=== PATIENT | female | born 1995 | race Caucasian/White ===

== ENCOUNTER 2017-04-19 17:37 | Emergency (ER) | payer MEDICAID ==
--- NOTE | 2017-04-19 19:56 | EDM.PDOC ---
ED HPI GENERAL MEDICAL PROBLEM - General Chief Complaint: Skin Complaint Stated Complaint: RED BUMPS ON BODY Time Seen by Provider: 04/19/17 19:50 Source of Information: Reports: Patient History Limitations: Reports: No Limitations - History of Present Illness INITIAL COMMENTS - FREE TEXT/NARRATIVE: This lady complains of some skin eruptions that have been going on for about one week and seem to be getting worse. They seem to be spreading. She has warm pruritic raised nodules to the ulnar surface of the distal forearm she has it on one finger there is a nodule on both sides of the low back. She has 1 platelets on the left protestant and over the Achilles tendon of one of her ankles there is an area that she has scratched a little bit to. She denies any recent kind of illness. She thinks it's hives because is so itchy. She hasn't been trying any kind of medications for this. No chance of . And she denies any kind of medications. - Related Data Allergies Allergy/AdvReac Type Severity Reaction Status Date / Time No Known Allergies Allergy Verified 04/19/17 18:01 Home Meds: Home Meds NK [No Known Home Meds] 04/19/17 [History] Past Medical History - Past Health History Medical/Surgical History: Denies Medical/Surgical History Social & Family History - Tobacco Use Smoking Status *Q: Current Every Day Smoker Years of Tobacco use: 3 Packs/Tins Daily: 0.1 ED ROS GENERAL - Review of Systems Review Of Systems: ROS reveals no pertinent complaints other than HPI. ED EXAM, SKIN/RASH Exam: See Below Exam Limited By: No Limitations General Appearance: Alert, WD/WN, No Apparent Distress Eye Exam: Bilateral Eye: Normal Inspection Ears: Normal External Exam Nose: Normal Inspection Throat/Mouth: Normal Oropharynx Head: Atraumatic Neck: Normal Inspection Respiratory/Chest: Lungs Clear Cardiovascular: Regular Rate, Rhythm GI/Abdominal: Non-Tender Back Exam: Normal Inspection Extremities: Normal Inspection Neurological: Alert Psychiatric: Normal Affect Skin: Other (There are warm red blanching nodules generally about 4 cm across they're located on both sides the back just inferior to the iliac crest. They are pruritic not overtly tender however and they are bright red and sussy. She has similar but little bit smaller lesions about 3 cm on both distal forearms. There is an indistinct lesion like this to the left protestant. There is an area on one of her Achilles tendon since of less distinct but she's been scratching attics as there are some little excoriations. I don't see any on the chest or upper back. The rest of the skin looks normal I don't see any kind of maculopapular rash or anything of that nature. These lesions have kind of an indistinct target appearance) Course - Vital Signs Last Recorded V/S: Last Vital Signs Temp 36.9 C 04/19/17 18:15 Pulse 74 04/19/17 18:15 Resp 16 04/19/17 18:15 BP 137/83 04/19/17 18:15 Pulse Ox 98 04/19/17 18:15 - Re-Assessments/Exams Free Text/Narrative Re-Assessment/Exam: 04/19/17 19:56 I explained to the girl that this looks a lot like erythema nodosum and we discussed the etiology of that. Urticaria still a possibility however Departure - Departure Time of Disposition: 19:56 Disposition: Home, Self-Care 01 Condition: Fair Clinical Impression: Urticaria - Discharge Information Referrals: PCP,None [Primary Care Provider] - Additional Instructions: There are features of these nodules that suggest erythema noted dose some. Please see the information sheet on erythema noted dose of that was downloaded from the [facility] website. This could also be the much more common hives or urticaria. For the itching take Benadryl 50 mg 4 times per day. This will cause sedation so be careful. You may want to use one of the nonsedating antihistamines such as Brisa or Zyrtec Claritin and so forth. Take the prednisone 40 mg daily for 5 days. If you're not getting better in a few days then be sure to see your doctor. Note that hives can be caused by a wide variety of different things like any medication any lotion or cosmetic or food. Most people with hives can never figure out what's causing it.
== END 2017-04-19 20:11 | disposition home or self-care (01) ==
LOC: JP.ED 17:37
DX: L50.9 Urticaria, unspecified (principal); F17.210 Nicotine dependence, cigarettes, uncomplicated
CPT/HCPCS: 99283